=== PATIENT | male | born 1950 | race Caucasian/White ===

== ENCOUNTER 2021-06-02 15:25 | Emergency (ER) | payer OTHER ==
[~2021-06-02] VITALS: Ht 175.3 cm; Wt 93.9 kg
[2021-06-02] MEDS ORDERED: AMOX500T2 PO (15:47)
--- NOTE | 2021-06-02 15:54 | NUR ---
PT WAS EVALUATED BY DR ESPITIA. PT WAS D/C'd TO HOME. D/C INSTRUCTIONS GIVEN TO THE PT BY DR ESPITIA.
[2021-06-02 15:55] VITALS: BP 140/81
== END 2021-06-02 15:56 | disposition home or self-care (01) ==
LOC: ER 15:31
DX: J32.9 Chronic sinusitis, unspecified (principal); R73.03 Prediabetes
CPT/HCPCS: A4663

== ENCOUNTER 2021-10-20 21:23 | Emergency (ER) | payer MEDICARE ==
[~2021-10-20] VITALS: Ht 177.8 cm; Wt 90.7 kg
[~2021-10-20 21:23] MED LIST: AMOX500T2 PO
--- NOTE | 2021-10-20 21:55 | NUR ---
Patient refused to have EKG to be done.
[2021-10-20] MEDS ORDERED: ACETAMINOPHEN 325 MG TABLET PO ONE (22:00)
[2021-10-20] MEDS ORDERED: ACETAMINOPHEN 325 MG TABLET ONE (22:04)
--- NOTE | 2021-10-20 22:05 | NUR ---
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 Is homeless at this time.
--- NOTE | 2021-10-20 22:11 | NUR ---
Patient does not wish to proceed with medical care recommended by Dr. Restrepo ). Patient given information related to possible complications, up to and including , which could occur as a result of leaving the hospital at this time. Patient verbalizes understanding of risks involved due to leaving against medical advice. Patient has signed AMA form.
== END 2021-10-20 22:12 | disposition left against medical advice (07) ==
LOC: ER 21:30
DX: R07.89 Other chest pain (principal); R04.0 Epistaxis; Z53.29 Procedure and treatment not carried out because of patient's decision for other reasons; R73.03 Prediabetes
CPT/HCPCS: 93005; A4663

== ENCOUNTER 2021-10-22 16:41 | Inpatient (IN) | payer MEDICARE ==
[2021-10-22] VITALS: BP 123/71
[~2021-10-22] VITALS: Ht 177.8 cm; Wt 93.1 kg
--- NOTE | 2021-10-22 16:55 | NUR ---
Pt was triaged, MSE was done by at tirage by SHANI. Pt was placed back in ER waiting room because there are no ER beds available at this time.
[2021-10-22] MEDS ORDERED: IBUPROFEN 600 MG TABLET PO ONE (17:00)
--- NOTE | 2021-10-22 17:55 | NUR ---
Pt ambulated to room 2b.
--- NOTE | 2021-10-22 17:58 | NUR ---
PT IS IN ROOM #2B. DR CRUZ EVALUATED THE PT.
[2021-10-22] MEDS ORDERED: IBUPROFEN 600 MG TABLET ONE (18:03)
[2021-10-22 18:07] LABS: HEMATOCRIT 38.5 % (36.7-47.1); MEAN CORPUSCULAR HEMOGLOBIN 32.1 uug (23.8-33.4); MEAN CORPUSCULAR VOLUME 92.3 fL (73.0-96.2); PLATELET COUNT (AUTO) 307 K/uL (152-348)
[2021-10-22 18:12] LABS: CREATININE 1.1 mg/dL (0.6-1.3); POTASSIUM 3.9 mmol/L (3.5-5.1)
[2021-10-22 18:18] LABS: BILIRUBIN,TOTAL 0.4 mg/dL (0.2-1.0); TOTAL PROTEIN, SERUM 8.3 g/dL (6.4-8.2)
[2021-10-22] MEDS ORDERED: MORPHINE SULFATE 2 MG/1 ML DISP.SYRIN IV PRN (21:00)
[2021-10-22] MEDS ORDERED: HYDROCODONE/APAP 5-325MG TABLET PO PRN (21:00)
[2021-10-22] MEDS ORDERED: ONDANSETRON 4 MG/2 ML VIAL IV PRN (21:00)
[2021-10-22] MEDS ORDERED: TEMAZEPAM 15 MG CAPSULE PO PRN (21:00)
--- NOTE | 2021-10-22 23:30 | NUR ---
Received admission report from ER nurse.
--- NOTE | 2021-10-22 23:45 | NUR ---
Patient arrived in the unit via gurney accompanied by ER nurse. Awake, alert and oriented x 3. Verbally responsive. Minimal assist provided during transfer from gurney to bed. Able to move all extremities without restriction except right LE with knee immobilizer in placed. Skin intact. Routine admission care done. Plan of care initiated.
[2021-10-23] MEDS: levoFLOXacin 500 MG/D5W 500 MG in PREMIXED 1 EACH IV SCH ×2 (00:55→20:00)
[2021-10-23] MEDS ORDERED: levoFLOXacin 500 MG/D5W 100 ML ONE (00:58)
--- NOTE | 2021-10-23 02:15 | NUR ---
Patient having episode of moderate amount of nose bleed. Cold wash towel applied to forehead and pressure applied to nose bridge to stop the bleeding. Tolerated procedure well. Will monitor.
--- NOTE | 2021-10-23 03:37 | NUR ---
Presented multiple complaints of having IV in placed , removed and restarted one on his right hand with G# 20 x 1 attempt. Wants to have the phototypesetting equipment monitor removed, bother him on his sleep, removed from gown pocket, placed on the side to avoid pressure on his chest as he claimed. Insisted to have his Melatonin medication. Explained to patient that we are not allowed to give sleeping medication past 3AM. Turned off TV, light and closed his door and encouraged patient to sleep. Will monitor.
[2021-10-23 04:30] VITALS: BP 111/61
[2021-10-23] MEDS: PANTOPRAZOLE SODIUM 40 MG TABLET.DR PO SCH (05:54)
[2021-10-23 06:42] LABS: HEMATOCRIT 34.5 % (36.7-47.1); MEAN CORPUSCULAR HEMOGLOBIN 31.9 uug (23.8-33.4); PLATELET COUNT (AUTO) 262 K/uL (152-348)
[2021-10-23 07:35] LABS: BILIRUBIN,TOTAL 0.4 mg/dL (0.2-1.0); CREATININE 1.1 mg/dL (0.6-1.3); MAGNESIUM 2.2 mg/dL (1.8-2.4); POTASSIUM 4.1 mmol/L (3.5-5.1); TOTAL PROTEIN, SERUM 7.1 g/dL (6.4-8.2)
[2021-10-23 08:21] LABS: THYROID STIMULATING HORMONE 0.643 mIU/mL (0.358-3.740)
--- NOTE | 2021-10-23 09:00 | NUR ---
PATIENT IS AWAKE ALERT AND ORIENTED DENIES PAIN OR DISCOMFORTS AT THIS TIME ABLE TO WALK TO AND FROM THE BATHROOM WITH SLOW STEADY GAIT CALL LIGHTS AND PERSONQAL BELONGINGS ARE WITHIN EASY REACH AT THIS TIMJE WILL CONTINUE TO OBSERVE
[2021-10-23] MEDS: ENOXAPARIN SODIUM 40 MG/0.4 ML DISP.SYRIN SQ SCH (09:42)
[2021-10-23 11:00] VITALS: BP 154/78
--- NOTE | 2021-10-23 15:00 | NUR ---
INCENTIVE SPIROMETER GIVEN TO PATIENT ORDERED AND INSTRUCTED ON USE AND HE EXPRESSED UNDERSTANDING
[2021-10-23 16:00] VITALS: BP 103/70
--- NOTE | 2021-10-23 16:52 | NUR ---
PATIENT C/O HAVING CONSTIPATION GAVE HIM PRUNE JUICE BUT IT DID NOT HELP SO I CALLED AND NOTIFIED CHETAN COBURN WITH NEW ORDERS AND NOTED.
[2021-10-23] MEDS ORDERED: MAGNESIUM HYDROXIDE 30 ML LIQUID UDC PO ONE (17:00)
--- NOTE | 2021-10-23 18:33 | NUR ---
PATIENT STATED HAD A BOWEL MOVEMENT AT THIS TIME.
--- NOTE | 2021-10-23 19:30 | NUR ---
RECEIVED PT AWAKE, ALERT AND ORIENTEDX4. PT IN NO ACUTE DISTRESS. IV INTACT. SAFETY AND COMFORT PROVIDED. WILL CONTINUE TO MONITOR.
[2021-10-23 20:00] VITALS: BP 133/80
[2021-10-23] MEDS: SENNOSIDES/DOCUSATE SODIUM TABLET PO SCH (20:00)
[2021-10-23] MEDS: ACETAMINOPHEN 325 MG TABLET PO PRN (20:07)
[2021-10-24] VITALS: BP 120/60
[2021-10-24 04:00] VITALS: BP 117/60
[2021-10-24] MEDS: PANTOPRAZOLE SODIUM 40 MG TABLET.DR PO SCH (06:09)
--- NOTE | 2021-10-24 06:31 | NUR ---
PT SLEPT INTERMITTENTLY. PT IN NO ACUTE DISTRESS. IV INTACT. PT ON ROOM AIR.PT IN NO ACUTE DISTRESS. PT STABLE. PT ON SINUS RHYTHM.PT CAN MAKE HIS NEEDS KNOWN.SAFETY AND COMFORT PROVIDED. ALL NEEDS ARE MET. WILL ENDORSE TO INCOMING NURSE FOR CONTINUITY OF CARE.
--- NOTE | 2021-10-24 07:30 | NUR ---
RECEIVED PATIENT IN BED SLEEPING ON AND OFF EASILY AROUSABLE ON ROUNDS ALERT AND ORIENTED WHEN AWAKE DENIES PAIN OR DISCOMFORTS AT THIS TIME ON ROOM AIR WITH NO SHORTNESS OF BREATH CALL LIGHTS AND PERSONAL BELONGINGS ARE WITHIN EASY REACH MADE COMFORTABLE WILL CONTINUE TO OBSERVE.
[2021-10-24 07:55] LABS: HEMATOCRIT 36.3 % (36.7-47.1); MEAN CORPUSCULAR HEMOGLOBIN 31.6 uug (23.8-33.4); PLATELET COUNT (AUTO) 307 K/uL (152-348)
[2021-10-24] MEDS: ENOXAPARIN SODIUM 40 MG/0.4 ML DISP.SYRIN SQ SCH (09:26)
--- NOTE | 2021-10-24 09:50 | NUR ---
PATIENT PICKED UP BY [employer]LECT[employer]ER FOR XRAY EXAMS ORDERED.
[2021-10-24 11:29] VITALS: BP 132/69
--- NOTE | 2021-10-24 13:43 | NUR ---
PATIENT SEEN AND EXAMINED BY DR HUFFMAN WITH NEW ORDERS AND NOTED.
--- NOTE | 2021-10-24 15:28 | NUR ---
PATIENT SEEN BY MICHAEL COBURN WITH ORDERS FOR CXR IN AM O2 SAT HAS BEEN ADEQUATE ON ROOM AIR NO SOB NOTED.STATUS CHANGED TO MED SURG PER MICHAEL COBURN RETAIL ACCOUNT REPRESENTATIVE
[2021-10-24 15:50] VITALS: BP 98/56
--- NOTE | 2021-10-24 16:46 | NUR ---
PATIENT IS FOR DISCHARGE TOMORROW PER MICHAEL TELE DISCONTINUED HE WAS ASSISTED WITH SHOWERING TODAY HE IS IN [employer] HAS ORDER FOR CXR IN AM BEFORE DISCHARGE
--- NOTE | 2021-10-24 16:55 | NUR ---
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
--- NOTE | 2021-10-24 19:30 | NUR ---
RECEIVED PT AWAKE, ALERT AND ORIENTEDX4. PT IN NO ACUTE DISTRESS. IV INTACT. SAFETY AND COMFORT PROVIDED. WILL CONTINUE TO MONITOR.
[2021-10-24 20:00] VITALS: BP 107/63
[2021-10-24] MEDS: SENNOSIDES/DOCUSATE SODIUM TABLET PO SCH (20:04)
[2021-10-24] MEDS: levoFLOXacin 500 MG/D5W 500 MG in PREMIXED 1 EACH IV SCH (20:04)
--- NOTE | 2021-10-24 21:30 | NUR ---
PT COMPLAINT OF ITCHINESS AND REDNESS ON THE RIGHT HAND AFTER LEVAQUIN ADMINISTERED. REMOVED IV. PT REFUSED TO HAVE A NEW IV ACCESS. NOTIFY MICHAEL COBURN.
--- NOTE | 2021-10-25 05:51 | NUR ---
PT SLEPT INTERMITTENTLY. PT IN NO ACUTE DISTRESS. PT REFUSED TO HAVE IV ACCESS. PRESCRIBED MEDICATION GIVEN AND PT TOLERATED IT WELL.PT REFUSED TO HAVE BLOOD DRAW. PT REFUSED TO HAVE HIS VITAL SIGNS TAKEN. SAFETY AND COMFORT PROVIDED. WILL ENDORSE TO INCOMING NURSE FOR CONTINUITY OF CARE.
[2021-10-25] MEDS: PANTOPRAZOLE SODIUM 40 MG TABLET.DR PO SCH (06:38)
--- NOTE | 2021-10-25 07:23 | NUR ---
Sapna Webster Transportation Worker ordered Benadryl 25mg prn for pt.
[2021-10-25] MEDS ORDERED: diphenhydrAMINE 25 MG CAP PO PRN (07:30)
--- NOTE | 2021-10-25 07:30 | NUR ---
AWAKE ALERT AND ORIENTED DENIES DISCOMFORTS AT THIS TIME ON ROOM AIR WITH NO SOB.CHEST XRAY COMPLETED ORDERED AWAITING FOR RESULTS D/C PLANNING TODAY.
[2021-10-25] MEDS: ACETAMINOPHEN 325 MG TABLET PO PRN (08:48)
[2021-10-25] MEDS: ENOXAPARIN SODIUM 40 MG/0.4 ML DISP.SYRIN SQ SCH (08:53)
--- NOTE | 2021-10-25 10:25 | NUR ---
PATIENT SEEN AND EXAMINED BY MICHAEL COBURN WITH ORDERS TO DISCHARGE PATIENT HOME TODAY WILL START THE DISCHARGE PROCESS
[2021-10-25 11:25] VITALS: BP 126/77
--- NOTE | 2021-10-25 11:45 | NUR ---
PATIENT DISCHARGED IN SATISFACTORY CONDITION WITH ALL HER PERSONAL BELONGINGS PATIENT HAS NO ACTIVE OR CURRENT MEDICATIONS HE IS INSTRUCTED TO CALL HIS PRIMARY DOCTOR FOR A FOLLOW UP APPOINTMENT WITHIN THE NEXT ONE TO TWO WEEKS AND HE EXPRESSED UNDERSTANDING PATIENT DENIES PAIN OR DISCOMFORTS AT THIS TIME HE IS ESCORTED DOWN TO THE LOBBY WHERE HE WAS PICKED UP BY HIS FRIEND.NO DISTRESS AT THIS TIME.
== END 2021-10-25 11:45 | disposition home or self-care (01) | DRG 205 ==
LOC: ER 16:44 → TELE3 23:27 → MEDSURG3 10-24 18:08
PROVIDERS: ADMIT Nurse Practitioner Acute Care; ATTEND Nurse Practitioner Acute Care
PROC: 2W3QX1Z Immobilization of Right Lower Leg using Splint (ICD-10-PCS; principal; 2021-10-22)
DX: S27.321A Contusion of lung, unilateral, initial encounter (principal); J15.6 Pneumonia due to other Gram-negative bacteria; S82.831A Other fracture of upper and lower end of right fibula, initial encounter for closed fracture; X58.XXXA Exposure to other specified factors, initial encounter; Y92.410 Unspecified street and highway as the place of occurrence of the external cause; V49.50XA Passenger injured in collision with unspecified motor vehicles in traffic accident, initial encounter; R73.03 Prediabetes; M17.11 Unilateral primary osteoarthritis, right knee; M71.20 Synovial cyst of popliteal space [Baker], unspecified knee; R04.0 Epistaxis; M25.461 Effusion, right knee; Z20.822 Contact with and (suspected) exposure to COVID-19
CPT/HCPCS: 36415; 70030-TC; 70160; 71045; 71111; 71250; 73700; 74150; 83735; 84100; 84443; 85025; 85610; 93005; 97161; A4663; G0378; J1650; J1956

== ENCOUNTER 2022-01-31 11:53 | Emergency (ER) | payer MEDICARE ==
[~2022-01-31] VITALS: Ht 172.7 cm; Wt 63.0 kg
--- NOTE | 2022-01-31 12:30 | NUR ---
Pt was given [employer] non-emergency phone number and also encouraged to go directly to police station to file a report or call 911 if feels he is any danger. Pt expressed to SHANI during MSE that he is concerned because he feels his roommate has been following him. Pt did not expressed to me that he is in any immediate danger.
--- NOTE | 2022-01-31 12:35 | NUR ---
Pt left the ER before written ACI could be given. Verbal ACI was given to pt by . Pt was seen walking out of the ER towards the ER waiting room.
== END 2022-01-31 12:39 | disposition home or self-care (01) ==
LOC: ER 11:53
DX: S00.11XA Contusion of right eyelid and periocular area, initial encounter (principal); S00.211A Abrasion of right eyelid and periocular area, initial encounter; W22.09XA Striking against other stationary object, initial encounter; Y92.89 Other specified places as the place of occurrence of the external cause; R73.03 Prediabetes
CPT/HCPCS: A4663